=== PATIENT | male | born 1950 | race Caucasian/White ===

== ENCOUNTER → 2019-11-30 | Outpatient (CLI) | payer MEDICARE, OTHER ==
[~2019-11-30] MED LIST: NO HOME MEDICATIONS; NORCO 325 MG-51 TAB PO
== END ==
LOC: COL.RAD 10:30
DX: Z01.812 Encounter for preprocedural laboratory examination (principal); K11.20 Sialoadenitis, unspecified; R29.898 Other symptoms and signs involving the musculoskeletal system; H93.A9 Pulsatile tinnitus, unspecified ear; K11.7 Disturbances of salivary secretion
CPT/HCPCS: Q9967

== ENCOUNTER → 2020-01-18 | Outpatient (CLI) | payer MEDICARE, OTHER | LOC: COL.VAS 12:18 | DX: R29.898 Other symptoms and signs involving the musculoskeletal system (principal) ==

== ENCOUNTER → 2021-06-28 | Outpatient (CLI) | payer MEDICARE, OTHER | LOC: COL.VAS 11:52 | DX: R09.89 Other specified symptoms and signs involving the circulatory and respiratory systems (principal) ==